=== PATIENT | male | born 1950 | race Caucasian/White ===

== ENCOUNTER → 2016-08-18 | Outpatient (CLI) | payer MEDICARE ==
[~2016-08-18] MED LIST: OMNIPAQUE 350 MG/ML, 100ML BOTTLE ONE
== END | disposition home or self-care (01) ==
LOC: CFH 09:11 → EDSTATUS 10:15
PROVIDERS: ATTEND Internal Medicine Hematology & Oncology
DX: C83.82 Other non-follicular lymphoma, intrathoracic lymph nodes (principal); R59.0 Localized enlarged lymph nodes; J90 Pleural effusion, not elsewhere classified; R91.8 Other nonspecific abnormal finding of lung field; N28.1 Cyst of kidney, acquired; K76.89 Other specified diseases of liver
CPT/HCPCS: 71260; 74177; Q9967

== ENCOUNTER → 2017-07-20 | Outpatient (CLI) | payer MEDICARE | END | disposition home or self-care (01) | LOC: CFH 10:00 | PROVIDERS: ATTEND Internal Medicine Hematology & Oncology | DX: I31.3 Pericardial effusion (noninflammatory) (principal); R91.8 Other nonspecific abnormal finding of lung field; R59.1 Generalized enlarged lymph nodes; D73.89 Other diseases of spleen; I26.99 Other pulmonary embolism without acute cor pulmonale; C83.82 Other non-follicular lymphoma, intrathoracic lymph nodes | CPT/HCPCS: 71260; 74177; Q9967 ==

== ENCOUNTER → 2017-08-17 | Outpatient (CLI) | payer MEDICARE | END | disposition home or self-care (01) | LOC: PETCFH 09:29 | PROVIDERS: ATTEND Internal Medicine Hematology & Oncology | DX: C83.82 Other non-follicular lymphoma, intrathoracic lymph nodes (principal); R59.1 Generalized enlarged lymph nodes; D73.89 Other diseases of spleen | CPT/HCPCS: A9552 ==

== ENCOUNTER 2018-04-02 20:04 | Emergency (ER) | payer MEDICARE ==
[~2018-04-02] VITALS: Ht 185.4 cm; Wt 91.9 kg
--- NOTE | 2018-04-02 20:26 | NUR ---
assessment made. PA at bedside.
[2018-04-02] MEDS ORDERED: ASPIRIN 81 MG TABLET CHEW PO ONE (20:30)
[2018-04-02] MEDS ORDERED: ASPIRIN 81 MG TABLET CHEW ONE (20:44)
[2018-04-02 20:49] LABS: BASOPHILS % (AUTO) 0 % (0-1); EOSINOPHILS # (AUTO) 0.05 x10^3/uL (0-0.4); EOSINOPHILS % (AUTO) 1 % (1-7); LYMPHOCYTES # (AUTO) 0.34 x10^3/uL (1-3.4); LYMPHOCYTES % (AUTO) 4 % (22-44); MD NO; MEAN CORPUSCULAR HGB CONC 34.3 g/dL (33.2-36.2); MEAN CORPUSCULAR VOLUME 90.4 fL (81-97); MEAN PLATELET VOLUME 8.6 fL (7.4-10.4); MONOCYTES # (AUTO) 0.38 x10^3/uL (0.2-0.8); MONOCYTES % (AUTO) 5 % (2-9); NEUTROPHILS # (AUTO) 7.68 x10^3/uL (1.8-6.8); NEUTROPHILS % (AUTO) 91 % (42-75); PLATELET COUNT 173 x10^3/uL (130-400); RED BLOOD COUNT 4.96 x10^6/uL (4.38-5.82); RED CELL DISTRIBUTION WIDTH 14.3 % (9.4-14.8)
[2018-04-02 20:58] LABS: ALBUMIN 3.8 g/dL (3.4-5.0); ANION GAP 8 mmol/L (5-15); CALCIUM 9.4 mg/dL (8.5-10.1); CHLORIDE 108 mmol/L (98-107); CREATININE 0.98 mg/dL (0.7-1.3)
[2018-04-02 21:02] LABS: TROPONIN I < 0.015 ng/mL (0.000-0.045)
--- NOTE | 2018-04-02 21:10 | NUR ---
labs and X ray resulted. chart up for MD to re-eval.
--- NOTE | 2018-04-02 22:04 | NUR ---
re-evaluation done. will page oncologist.
[2018-04-02 22:26] VITALS: BP 157/78
--- NOTE | 2018-04-02 22:26 | NUR ---
patient discharged with instruction to follow up to Oncologist STEPHANIE. verbalized understanding.
== END 2018-04-02 22:28 | disposition home or self-care (01) ==
LOC: ED 20:50
DX: R07.89 Other chest pain (principal); R06.00 Dyspnea, unspecified; R53.1 Weakness; Z85.72 Personal history of non-Hodgkin lymphomas
CPT/HCPCS: 36415; 71045; 80048; 82040; 83880; 84484; 85025; 93005; 99284

== ENCOUNTER → 2018-04-04 | Outpatient (CLI) | payer MEDICARE | END | disposition home or self-care (01) | LOC: PETCFH 09:35 | PROVIDERS: ATTEND Internal Medicine Hematology & Oncology | DX: C85.28 Mediastinal (thymic) large B-cell lymphoma, lymph nodes of multiple sites (principal); R59.0 Localized enlarged lymph nodes; D73.9 Disease of spleen, unspecified | CPT/HCPCS: 78815; A9552 ==

== ENCOUNTER → 2018-04-19 | Outpatient (CLI) | payer MEDICARE | END | disposition home or self-care (01) | LOC: CFH 12:46 | PROVIDERS: ATTEND Internal Medicine Cardiovascular Disease | DX: Z01.810 Encounter for preprocedural cardiovascular examination (principal); I10 Essential (primary) hypertension; I31.3 Pericardial effusion (noninflammatory) | CPT/HCPCS: 78452; 93017; A9502 ==

== ENCOUNTER → 2018-06-27 | Outpatient (CLI) | payer MEDICARE | END | disposition home or self-care (01) | LOC: CFH 09:11 | PROVIDERS: ATTEND Internal Medicine Hematology & Oncology | DX: C85.28 Mediastinal (thymic) large B-cell lymphoma, lymph nodes of multiple sites (principal); R16.1 Splenomegaly, not elsewhere classified | CPT/HCPCS: 71260; 74177; Q9967 ==

== ENCOUNTER 2018-10-10 08:51 | Outpatient (CLI) | payer MEDICARE | END 2018-10-10 23:59 | disposition home or self-care (01) | LOC: PETCFH 08:51 | PROVIDERS: ATTEND Internal Medicine Hematology & Oncology | DX: C85.28 Mediastinal (thymic) large B-cell lymphoma, lymph nodes of multiple sites (principal); D73.89 Other diseases of spleen | CPT/HCPCS: 78815; A9552 ==

== ENCOUNTER 2019-03-14 09:35 | Outpatient (CLI) | payer MEDICARE | END 2019-03-14 23:59 | disposition home or self-care (01) | LOC: PETCFH 09:35 | PROVIDERS: ATTEND Internal Medicine Hematology & Oncology | DX: C85.28 Mediastinal (thymic) large B-cell lymphoma, lymph nodes of multiple sites (principal) | CPT/HCPCS: 78815; A9552 ==

== ENCOUNTER → 2019-08-28 | Outpatient (CLI) | payer MEDICARE | END | disposition home or self-care (01) | LOC: PETCFH 09:24 | PROVIDERS: ATTEND Internal Medicine Hematology & Oncology | DX: C85.28 Mediastinal (thymic) large B-cell lymphoma, lymph nodes of multiple sites (principal); K44.9 Diaphragmatic hernia without obstruction or gangrene; N32.89 Other specified disorders of bladder | CPT/HCPCS: 78815; A9552 ==

== ENCOUNTER → 2019-09-30 | Outpatient (CLI) | payer MEDICARE | END | disposition home or self-care (01) | LOC: ROC 07:43 | PROVIDERS: ATTEND Radiology Radiation Oncology | DX: C85.20 Mediastinal (thymic) large B-cell lymphoma, unspecified site (principal) | CPT/HCPCS: G0463 ==

== ENCOUNTER 2020-01-31 07:38 | Outpatient (CLI) | payer MEDICARE | END 2020-01-31 23:59 | disposition home or self-care (01) | LOC: ROC 07:38 | PROVIDERS: ATTEND Radiology Radiation Oncology | DX: Z02.9 Encounter for administrative examinations, unspecified (principal) ==

== ENCOUNTER 2020-03-20 07:18 | Outpatient (CLI) | payer MEDICARE | END 2020-03-20 23:59 | disposition home or self-care (01) | LOC: ROC 07:18 | PROVIDERS: ATTEND Radiology Radiation Oncology | DX: Z08 Encounter for follow-up examination after completed treatment for malignant neoplasm (principal); C85.92 Non-Hodgkin lymphoma, unspecified, intrathoracic lymph nodes | CPT/HCPCS: G0463 ==